=== PATIENT | male | born 1975 | race Caucasian/White ===

== ENCOUNTER → 2021-04-20 | Outpatient (CLI) | payer BC | LOC: LAB 17:15 | DX: Z20.822 Contact with and (suspected) exposure to COVID-19 (principal) ==

== ENCOUNTER → 2021-12-24 | Outpatient (CLI) | payer BC | LOC: RAD 09:40 → LAB 09:40 | DX: M25.551 Pain in right hip (principal); M25.552 Pain in left hip ==